=== PATIENT | female | born 1945 | race Caucasian/White ===

== ENCOUNTER → 2017-05-25 | Outpatient (CLI) | payer OTHER | LOC: BMCIMAGING 08:57 | PROVIDERS: ATTEND Internal Medicine | DX: Z12.31 Encounter for screening mammogram for malignant neoplasm of breast (principal) | CPT/HCPCS: G0202 ==

== ENCOUNTER → 2018-05-26 | Outpatient (CLI) | payer OTHER | LOC: FIMAGING 10:53 | PROVIDERS: ATTEND Internal Medicine | DX: Z12.31 Encounter for screening mammogram for malignant neoplasm of breast (principal); Z80.3 Family history of malignant neoplasm of breast ==

== ENCOUNTER 2018-08-01 18:23 | Emergency (ER) | payer OTHER ==
[2018-08-01 18:29] VITALS: BP 185/56
--- NOTE | 2018-08-01 18:49 | EDPHY ---
General Time Seen by Provider: 08/01/18 18:29 Narrative: CLINICAL IMPRESSION: Closed, right, distal radius fracture ASSESSMENT/PLAN: Very pleasant 72-year-old femdw-[id number]-ejwqlbnr female presents to the emergency department with right wrist pain after falling on outstretched hand earlier this evening. She is neurovascularly intact, no open wounds. X-rays consistent with a closed, intra-articular fracture of the distal radius of the right wrist. No forearm or elbow pain. She was placed in a forearm sugar-tong splint and sling, provided orthopedic referral, rice treatment reviewed, warning signs return to ED sooner alignment discharge. DIFFERENTIAL DX: Differential includes but not limited to acute fracture, dislocation, musculoskeletal strain, ligamentous injury ED PROCEDURES: Procedure: Splint placement. A [forearm sugartong splint and sling was applied to right wrist by technician support association, supervised by myself. After application of the splint I returned and re- examined the patient. The splint was adequately immobilizing the joint and distal to the splint the patient's circulation and sensation was intact. ED COURSE: CHIEF COMPLAINT: right wrist pain HPI: 72-year-old ppnas-cerw-nkjseauw female presents to the emergency department with right wrist pain after she fell walking her dog today. No open wounds or complains of sensory change to the wrist hand or fingers. No elbow pain. No other injuries. 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 Neurological: No sensory loss or weakness. PHYSICAL EXAM: General Appearance: Alert, oriented, appropriate for age, cooperative, NAD, well hydrated, non-toxic appearing, VSS, no hypoxia. Neurological: Alert and oriented x 3, normal sensation and strength of extremities Skin: Warm, dry, no rashes, no nodules on palpation. Musculoskeletal: Swelling noted to distal right wrist. No open wounds. Neurovascular exam intact. Patient is able to abduct thumb to 2nd digit, abduct all fingers, has intact but limited flexion and extension of the wrist secondary to pain. No reproducible forearm or elbow pain. MEDICAL DECISION MAKING: Patient was seen independently. Secondary supervising physician at time of evaluation was Dr. Barnes Diagnosis: Closed, intra-articular right distal radius fracture . New, requires workup Summary: See assessment and plan for summary of ED visit Independent visualization of images, tracing, or specimens yes. Patient Progress: Improved. - Diagnostics Imaging Results: Imaging Impressions Wrist X-Ray 08/01/18 18:24 Impression: 1. Complex nondisplaced distal right radial impaction type fracture with intra- articular involvement. - History Smoking Status: Never smoked - Objective Vital Signs: Initial Vital Signs Temperature (C) 36.6 C 08/01/18 18:27 Heart Rate 67 08/01/18 18:27 Respiratory Rate 16 08/01/18 18:27 Blood Pressure 185/56 H 08/01/18 18:27 O2 Sat (%) 96 08/01/18 18:27 O2 Delivery Mode Room Air Allergies/Adverse Reactions: No Known Allergies Allergy (Unverified 08/01/18 18:26) Home Medications: Medication Instructions Recorded Advil 08/01/18 Ginkgo Biloba 08/01/18 Departure - Departure Disposition: Home, Routine, Self-Care Clinical Impression: Distal radius fracture, right Qualifiers: Encounter type: initial encounter Fracture type: closed Fracture morphology: other intra-articular Qualified Code(s): S52.571A - Other intraarticular fracture of lower end of right radius, initial encounter for closed fracture Condition: Good Instructions: Wrist Fracture in Adults (ED) Additional Instructions: DISCHARGE INSTRUCTIONS FROM YOUR DOCTOR Thank you for visiting our emergency department today. Please keep in mind that discharge from the emergency department does not mean that there is nothing wrong - it simply means that we have not identified an emergency condition that requires further evaluation or treatment in the hospital. You should always plan to follow up with primary care for re-evaluation of your condition in the next 2-3 days. If you have been referred to a specialist, please call as soon as possible (today or tomorrow) to schedule your follow up appointment at the appropriate time. YOU HAVE A DISTAL RADIUS FRACTURE THAT WILL NEED ORTHOPEDIC FOLLOW-UP. A REFERRAL WAS GIVEN TONIGHT. PLEASE CALL FOR AN APPOINTMENT. REST AND ELEVATE THE AFFECTED EXTREMITY MUCH POSSIBLE. ICE THE AFFECTED AREAS 20 MIN ON, 20 MIN OFF FOR THE NEXT SEVERAL DAYS. PLEASE USE TYLENOL OR IBUPROFEN OVER THE COUNTER IN APPROPRIATE DOSES OUTLINED ON YOUR DISCHARGE PAPERS. TAKE IBUPROFEN WITH FOOD AND A LARGE GLASS OF WATER. DO NOT TAKE IBUPROFEN IF YOU ARE ON A BLOOD THINNING MEDICATION SUCH COUMADIN, XARELTO, WARFARIN, LOVENOX OR PLAVIX. RETURN TO THE EMERGENCY DEPARTMENT FOR SEVERE PAIN, LOSS OF SENSATION TO FINGERS OR HAND, FEVERS GREATER THAN 100.4, LOSS OF COLOR TO HAND OR FINGERS, OR ANY OTHER CONCERNS. People present with illnesses and injuries in different ways, and it is always possible that we have missed something. You may always return for re-evaluation if symptoms worsen or if they are not improving or if you develop new/different symptoms. Again, thank you for choosing our emergency department. We hope that you feel better. Referrals: Charlse Hinds MD [Primary Care Provider] - As per Instructions Martínez Mosher MD [Medical Doctor] - 1-2 days without fail
== END 2018-08-01 19:06 | disposition home or self-care (01) ==
PROC: 2W3CX1Z Immobilization of Right Lower Arm using Splint (ICD-10-PCS; principal; 2018-08-01)
DX: S52.571A Other intraarticular fracture of lower end of right radius, initial encounter for closed fracture (principal); W19.XXXA Unspecified fall, initial encounter; Y93.K1 Activity, walking an animal; Y99.8 Other external cause status; Y92.9 Unspecified place or not applicable
CPT/HCPCS: A4565

== ENCOUNTER → 2018-08-05 | Outpatient (CLI) | payer OTHER | LOC: FIMAGING 07:48 | PROVIDERS: ATTEND Internal Medicine | DX: K80.20 Calculus of gallbladder without cholecystitis without obstruction (principal) ==

== ENCOUNTER 2018-08-16 09:45 | Day surgery (SDC) | payer OTHER ==
[2018-08-16] MEDS ORDERED: LR 1,000 ML IV ONE (09:58)
--- NOTE | 2018-08-16 10:20 | PDANEPAE ---
ANE History of Present Illness ORIF R wrist ANE Past Medical History - Cardiovascular History Hx Hypertension: No Hx Arrhythmias: No Hx Chest Pain: No Hx Coronary Artery / Peripheral Vascular Disease: No Hx CHF / Valvular Disease: No Hx Palpitations: No - Pulmonary History Hx COPD: No Hx Asthma/Reactive Airway Disease: No Hx Recent Upper Respiratory Infection: No Hx Oxygen in Use at Home: No Hx Sleep Apnea: No Sleep Apnea Screening Result - Last Documented: Negative - Neurologic History Hx Cerebrovascular Accident: No Hx Seizures: No Hx Dementia: No - Endocrine History Hx Diabetes: No - Renal History Hx Renal Disorders: No - Liver History Hx Hepatic Disorders: No - Neurological & Psychiatric Hx Hx Neurological and Psychiatric Disorders: No - Cancer History Hx Cancer: No - Congenital Disorder History Hx Congenital Disorders: No - GI History Hx Gastrointestinal Disorders: Yes Gastrointestinal History Comment: gallstones currently- gallbladder is causing abd issues, will be having fernanda soon - Other Health History Other Health History: wears glasses/ contacts - Chronic Pain History Chronic Pain: No - Surgical History Prior Surgeries: 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 ANE Review of Systems Review of Systems: - Exercise capacity METS (RN): 4 METS ANE Patient History - Allergies Allergies/Adverse Reactions: No Known Allergies Allergy (Verified 08/15/18 14:56) - Home Medications Home Medications: Advil 08/01/18 [Last Taken Unknown] Herbals/Supplements -Info Only 08/15/18 [Last Taken 08/12/18] Tylenol 1,000 mg PRN 08/16/18 [Last Taken 1 Day Ago ~08/15/18] - NPO status NPO Since - Liquids (Date): 08/15/18 NPO Since - Liquids (Time): 21:00 NPO Since - Solids (Date): 08/15/18 NPO Since - Solids (Time): 19:30 - Anes Hx Anes Hx: no prior problems - Smoking Hx Smoking Status: Never smoked - Alcohol Use Alcohol Use: Occasionally - Family Anes Hx Family Anes Hx: none Family Hx Anesthesia Complications: sister recently had thyroid surgery and she has had nausea x 2 weeks following surgery ANE Labs/Vital Signs - Vital Signs Blood Pressure: 151/80 Heart Rate: 58 Respiratory Rate: 16 O2 Sat (%): 96 Height: 167.64 cm Weight: 57.606 kg ANE Physical Exam - Airway Neck exam: FROM Mallampati Score: Class 2 Mouth exam: normal dental/mouth exam - Pulmonary Pulmonary: no respiratory distress, clear to auscultation - Cardiovascular Cardiovascular: regular rate and rhythym, no murmur, rub, or gallop - ASA Status ASA Status: II ANE Anesthesia Plan Anesthesia Plan: GA w LMA
[2018-08-16] MEDS ORDERED: PROPOFOL 200 MG/20 ML VIAL ONE (10:26)
[2018-08-16] MEDS ORDERED: fentaNYL 100 MCG/2 ML INJ ONE ×2 (10:26→13:32)
[2018-08-16] MEDS ORDERED: LIDOCAINE 2% 100 MG/5 ML SYR ONE (10:27)
[2018-08-16] MEDS ORDERED: BUPIVACAINE 0.5% 30 ML SDV ONE (10:30)
[2018-08-16] MEDS ORDERED: CEFAZOLIN 2 GM/DEXTROSE/100 ML BAG IV ONE (11:41)
--- NOTE | 2018-08-16 11:45 | PDHPUP ---
History & Physical Update H&P update statement: This history and physical update is based on an assessment of the patient which was completed after admission or registration (within 24 hours), but prior to the surgery/procedure. H&P update: no change in patient's condition since H&P completed (No changes)
[2018-08-16] MEDS ORDERED: ceFAZolin 2 GM/DEXTROSE 100 ML IV ONE (11:46)
[2018-08-16] MEDS ORDERED: NALOXONE HCL 0.4 MG/ML INJ IVP PRN (12:20)
[2018-08-16] MEDS ORDERED: oxyCODONE IR 5 MG TAB PO PRN (12:35)
[2018-08-16] MEDS ORDERED: HYDROCODONE/APAP 5/325 TAB PO PRN (12:35)
[2018-08-16] MEDS ORDERED: ACETAMINOPHEN 500 MG TAB PO PRN (12:35)
[2018-08-16] MEDS ORDERED: ONDANSETRON 4 MG/2 ML VIAL IVP PRN (12:35)
[2018-08-16] MEDS ORDERED: PROMETHAZINE HCL 25 MG/ML INJ IVP PRN (12:35)
[2018-08-16] MEDS ORDERED: HYDROmorphONE/DILAUDID 2 MG/ML INJ IVP PRN (12:35)
[2018-08-16] MEDS ORDERED: ONDANSETRON 4 MG/2 ML VIAL ONE (12:37)
[2018-08-16] MEDS ORDERED: DEXAMETHASONE 4 MG/ML VIAL ONE (12:37)
--- NOTE | 2018-08-16 13:08 | POSTANESTH ---
Post Anesthetic Evaluation Cardiovascular Status: Normal, Stable, Similar to Pre-Op Cond Respiratory Status: Normal, Stable, Similar to Pre-op Cond. Level of Consciousness/Mental Status: Moderately Sleepy Pain Control: Adequate, Prn Tx Ordered Nausea/Vomiting Control: Adequate, Prn Tx Ordered Complications Possibly Related to Anesthesia: None Noted
--- NOTE | 2018-08-16 13:11 | POSTOPPROG ---
Post Op Note Date of Operation: 08/16/18 Surgeon: Nir Elam Anesthesiologist: Josué Mujica Anesthesia: GET(General Endotracheal) Pre-op Diagnosis: Right distal radial Post-op Diagnosis: Same Indication: Fracture Procedure: ORIF right distal radial fracture Findings: fracture malalignment Inf/Abcess present in the surg proc area at time of surgery?: No Depth: Deep Incisional (Fascial) EBL: Minimal Total fluids administered: 600cc Complications: none Specimen(s): No
[2018-08-16] MEDS: fentaNYL 100 MCG/2 ML INJ IVP PRN ×2 (13:33→13:43)
--- NOTE | 2018-08-16 13:55 | GOP ---
DATE OF ADMISSION: 08/16/2018 PREOPERATIVE DIAGNOSIS: Right distal radial fracture. POSTOPERATIVE DIAGNOSIS: Right distal radial fracture. PROPOSED OPERATION: Right distal radial fracture, open reduction internal fixation. INDICATION: This patient's fracture had collapsed into dorsal tilt and unfortunately, was in unaccep table position. It was decided that open reduction and internal fixation was a good option for her. DESCRIPTION OF PROCEDURE: Under general anesthesia, the patient's right arm was prepped and draped i n the usual fashion and through an L-shaped palmar incision, skin and subcutaneous tissue were reflec ho. The interval between the flexor carpi radialis and flexor pollicis longus was developed. The r est of the flexors and median nerve were reflected ulnarly and the pronator quadratus was elevated fr om the distal radius. The fracture site was identified. That was mobilized using a [place] elevator a nd once the fracture was mobilized, x-rays were taken showing that the fracture could be reduced into anatomic alignment. A Synthes plate and screws with 6 holes distally and 3 holes in the shaft of th e plate was applied and x-rays were taken showing very nice position of the plate. The fracture redu ulisses into anatomic position and screw lengths were correct. The wound was irrigated with body tempera ture saline and then 0.5% plain Marcaine was instilled in the operative area. The pronator quadratus was tacked back in place with [id number] sutures of 4-0 PDS. Fascia was closed with 4-0 PDS an d then skin closed with horizontal mattress sutures of 5-0 Prolene. A bulky soft dressing was applie d followed by palmar based fiberglass splint held in place with an Abbe bandage. She tolerated the pr ocedure well. Tourniquet deflation resulted in immediate pinking of the digits. She was brought to the recovery area. Detailed postoperative instructions were given prior to discharge. A prescriptio n for [place] and Keflex. She had been given 2 g of Ancef prior to commencement of surgery. Followup arrangements in the office for about a week postop for dressing and suture removal and cast applicati on for 3 additional weeks. /[id number]/MODL
[2018-08-16] MEDS ORDERED: HYDROCODONE/APAP 5/325 TAB ONE (14:13)
[2018-08-16 15:41] VITALS: BP 144/65
== END 2018-08-16 15:42 | disposition home or self-care (01) ==
LOC: FSGY 09:45
PROVIDERS: ATTEND Specialist
PROC: 0PSH04Z Reposition Right Radius with Internal Fixation Device, Open Approach (ICD-10-PCS; principal; 2018-08-16 11:00)
DX: S52.531A Colles' fracture of right radius, initial encounter for closed fracture (principal); W19.XXXA Unspecified fall, initial encounter; Y93.K1 Activity, walking an animal; K80.20 Calculus of gallbladder without cholecystitis without obstruction
CPT/HCPCS: 25607; C1769; C1713; J0690; J1100; J2001; J2405; J2704; J3010

== ENCOUNTER 2019-01-09 15:27 | Emergency (ER) | payer OTHER | END 2019-01-09 17:50 | disposition home or self-care (01) ==